=== PATIENT | female | born 1985 | race African-American/Black ===

== ENCOUNTER 2017-05-07 08:27 | Emergency (ER) | payer MEDICARE, MEDICAID ==
[~2017-05-07] VITALS: Ht 165.1 cm; Wt 120.0 kg
[~2017-05-07 08:27] MED LIST: ALBU8I INH; CIPR500T4 PO; NORV5TAB PO; TRAM50 PO; VICT18IN SQ
[2017-05-07 08:31] VITALS: BP 138/80; PULSE 80; RESP 16; TEMP 98.5; O2SAT 99
--- NOTE | 2017-05-07 08:40 | PD ---
HPI . left forearm possible abscess Chief Complaint: Lump, Cyst, Hernia Time Seen by Provider: 08:40 Travel History International Travel<30 days: No Contact w/Intl Traveler<30days: No Traveled to known affect area: No History of Present Illness HPI 31-year-old female with history of diabetes here with complaints of the left forearm swelling. Patient denies that she may be getting an abscess and would like to have it drained. She reports the proximally 2 weeks ago she had a similar swelling and that it eventually went away. She tells me now that she has a "risen" and that the area had fever. She denies any actual fever or chills. There has been no drainage from the site. PFSH Past Medical History Arthritis: Yes (CHRONIC LT ANKLE PAIN) Asthma: Yes Diabetes: Yes Diminished Hearing: No Hypertension: Yes Respiratory: Yes (asthma) Immunizations Current: Yes Migraines: Yes ?: Not LMP: MARCH 2017 : 2 Para: 0 Miscarriage: 2 Dilation and Curettage (D&C): Yes Past Surgical History Gynecologic Surgery: Yes (d & c) Other Surgery: Yes (hand surgery) Social History Alcohol Use: No Tobacco Use: No Substance Use: No Allergies-Medications (Allergen,Severity, Reaction): Coded Allergies: acetaminophen (Unverified Allergy, Severe, ITCHING, 05/11/17) amoxicillin (Unverified Allergy, Severe, ITCHING, 05/11/17) oxycodone (Unverified Allergy, Severe, ITCHING, 05/11/17) penicillin G (Unverified Allergy, Severe, ITCHING, 05/11/17) Reported Meds & Prescriptions Reported Meds & Active Scripts Active Reported Lortab (Hydrocodone-Acetaminophen) 5-325 Mg Tab 1 Tab PO Q4H PRN Lyrica (Pregabalin) 25 Mg Cap 25 Mg PO BID Topamax (Topiramate) 25 Mg Tab 25 Mg PO BID Tradjenta (Linagliptin) 5 Mg Tab 5 Mg PO DAILY Victoza 3-Abelino (Liraglutide) 0.6 Mg/0.1 Ml Pen.injctr Review of Systems General / Constitutional: No: Fever Eyes: No: Visual changes HENT: No: Headaches Cardiovascular: No: Chest Pain or Discomfort Respiratory: No: Shortness of Breath Gastrointestinal: No: Abdominal Pain Genitourinary: No: Dysuria Musculoskeletal: No: Pain Skin: Positive Other (left forearm erythema), No Rash Neurologic: No: Weakness Psychiatric: No: Depression Endocrine: No: Polydipsia Hematologic/Lymphatic: No: Easy Bruising Physical Exam Narrative GENERAL: AAO x 3, no acute distress, Well-nourished, well-developed patient. Morbidly obese SKIN: Warm and dry. No visible rashes or bruising. Left forearm with small 0.5 cm induration that is firm, nonfluctuant, with surrounding inflammation and erythema HEAD: Normocephalic and atraumatic. EYES: No scleral icterus. No injection or drainage. EOM intact, PERRLA ENT: No nasal drainage noted. Mucous membranes pink. Airway patent. NECK: Supple, trachea midline. No JVD. CARDIOVASCULAR: Regular rate and rhythm without murmurs, gallops, or rubs. RESPIRATORY: Breath sounds equal bilaterally. No accessory muscle use. No rhonchi or rales. GASTROINTESTINAL: Abdomen soft, non-tender, nondistended. EXTREMITIES: No cyanosis or edema. All joints move normally BACK: No obvious deformity. 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 Data Data Last Documented VS [facility] Medical Decision Making Medical Screen Exam Complete: Yes Emergency Medical Condition: Yes Medical Record Reviewed: Yes Differential Diagnosis Early abscess, cellulitis of the forearm, less likely shingles Narrative Course 31-year-old female here with what appears to be possible early abscess formation and a localized cellulitis of the left forearm. I will go ahead and treat her with a course of antibiotics to cover MRSA. I advised her to try warm compresses and if the area starts to develop a head, she can return to the emergency department for incision and drainage. I explained to her that unfortunately at this time there is nothing to drain. She was rather understanding. She can use [id number] Motrin and Tylenol as needed for pain. I don't believe she needs any further work up and she has no signs of sepsis. She is afebrile and not tachycardic. Patient verbalized understanding of instructions, questions were answered, and thanked me for their care. I advised them if their condition worsens, please return to the nearest emergency room for further care. Diagnosis Primary Impression: Cellulitis of arm, left Patient Instructions: General Instructions Additional Instructions: You can try to use warm compresses to the area to see if a head develops. If it does, you can come back to the emergency department to have it drained. Watch for signs of infection: fever, redness, swelling, warmth, pus or drainage , red streaks around the cut, and increased pain from the area. If any of these develop, go to the nearest emergency department. Please return to emergency department if your symptoms return or worsen. Follow up with your primary care provider. Take medications as prescribed. Med/Other Pt SpecificInfo: Prescription(s) given Disposition: DISCHARGE HOME Condition: Stable Kaylie Franco May 07, 2017 08:40 Take medications as prescribed. Med/Other Pt SpecificInfo: Prescription(s) given Disposition: DISCHARGE HOME Condition: Kaylie Washington May 07, 2017 08:40
[2017-05-07] MEDS ORDERED: BACT800T5 PO (08:49)
[2017-05-07] MEDS ORDERED: VICT18IN2 (08:53)
[2017-05-07] MEDS ORDERED: TOPA25TA8 PO (08:53)
[2017-05-07] MEDS ORDERED: TRAD5TAB PO (08:53)
[2017-05-07] MEDS ORDERED: HYDR-3533 PO (08:53)
[2017-05-07] MEDS ORDERED: PREG25 PO (08:53)
== END 2017-05-07 09:24 | disposition home or self-care (01) ==
LOC: NEPK 08:27
DX: L03.114 Cellulitis of left upper limb (principal); E11.9 Type 2 diabetes mellitus without complications; M13.88 Other specified arthritis, other site; J45.909 Unspecified asthma, uncomplicated; I10 Essential (primary) hypertension; Z79.899 Other long term (current) drug therapy
CPT/HCPCS: 99283